=== PATIENT | female | born 1980 | race African-American/Black ===

== ENCOUNTER 2020-09-24 13:09 | Emergency (ER) | payer OTHER ==
[~2020-09-24] VITALS: Ht 165.1 cm; Wt 68.0 kg
[2020-09-24] MEDS ORDERED: CYMBALTA60 MG (13:47)
[2020-09-24] MEDS ORDERED: ULTRAM50 MG PO (19:53)
[2020-09-24] MEDS ORDERED: INTESTINEX680 M1 PO (19:53)
[2020-09-24] MEDS ORDERED: CLINDAMYCIN HC300 MG PO (19:53)
== END 2020-09-24 20:51 | disposition home or self-care (01) ==
LOC: ER 13:09
DX: K05.219 Aggressive periodontitis, localized, unspecified severity (principal); K08.89 Other specified disorders of teeth and supporting structures

== ENCOUNTER 2025-01-31 08:43 | Outpatient (CLI) | payer OTHER ==
[~2025-01-31 08:43] MED LIST: CLINDAMYCIN HC300 MG PO; CYMBALTA60 MG; INTESTINEX680 M1 PO; ULTRAM50 MG PO
[2025-01-31 10:48] LABS: PH,URINE 6.5 (5.0-8.0); URINE APPEARANCE Clear; URINE BILIRRUBIN Negative (NEGATIVE); URINE BLOOD Negative; URINE COLOR Yellow; URINE GLUCOSE Negative (NEGATIVE); URINE KETONE Negative (NEGATIVE); URINE LEUKOCYTE Trace; URINE NITRATE Negative; URINE PROTEIN Negative (NEGATIVE); URINE UROBILINOGEN 0.2 E.U./dl
[2025-01-31 10:50] LABS: URINE BACTERIA 665.6 uL (0.0-1933); URINE EPITHELIAL CELLS 2.5 uL (0.0-38.8); URINE RBC 3.8 uL (0.0-20.8); URINE WBC 8.3 uL (0.0-23.2)
[2025-01-31 10:54] LABS: BASO % 0.6 % (0.1-1.2); EOS # 0.22 (0.04-0.54); HEMOGLOBIN 11.2 g/dL (11.2-15.7); LYMPH # 1.65 (1.18-3.74); LYMPH % 22.8 % (19.3-53.1); MONO # 0.39 (0.24-0.82); MONO % 5.4 % (4.7-12.5); NEUT # 4.92 (1.56-6.13); NEUT % 67.9 % (34.0-71.1); PLATELET COUNT 184 K/uL (163-369); RED CELL DISTRIBUTION WIDTH 12.6 % (11.6-14.4)
[2025-01-31 10:58] LABS: ERYTHROCYTE SEDIMENTATION RATE 8 mm/hr (0-20)
[2025-01-31 11:43] LABS: ALBUMIN 3.9 gm/dL (3.4-5.0); BILIRUBIN TOTAL 0.48 mg/dL (0.3-1.2); CALCIUM 9.1 mg/dL (8.5-10.1); CHOL HDL RATIO 4.1 (0-5.0); CREATININE SERUM 0.63 mg/dL (0.55-1.02); GFR 102.19; GLOBULINA 2.8 G/DL (2.4-3.5); POTASSIUM 4.05 mEq/L (3.5-5.1); TOTAL PROTEIN 6.7 gm/dL (6.4-8.2); TSH 0.513 uIU/mL (0.358-3.74)
== END 2025-01-31 08:48 | disposition home or self-care (01) ==
LOC: LAB 08:43
DX: N39.0 Urinary tract infection, site not specified (principal); R39.15 Urgency of urination; R51.0 Headache with orthostatic component, not elsewhere classified; R53.1 Weakness; M79.7 Fibromyalgia; E55.9 Vitamin D deficiency, unspecified; E66.3 Overweight

== ENCOUNTER → 2025-04-02 09:02 | Outpatient (CLI) | payer OTHER ==
[2025-04-02 10:12] LABS: URINE APPEARANCE Clear; URINE BILIRRUBIN Negative (NEGATIVE); URINE BLOOD Negative; URINE COLOR Yellow; URINE GLUCOSE Negative (NEGATIVE); URINE KETONE Negative (NEGATIVE); URINE LEUKOCYTE Moderate; URINE NITRATE Negative; URINE PROTEIN Negative (NEGATIVE); URINE UROBILINOGEN 0.2 E.U./dl
[2025-04-02 10:15] LABS: BASO % 0.3 % (0.1-1.2); EOS # 0.08 (0.04-0.54); EOS % 1.4 % (0.7-7.0); LYMPH # 1.64 (1.18-3.74); LYMPH % 27.9 % (19.3-53.1); MEAN PLATELET VOLUME 10.10 fl (9.4-12.4); MONO # 0.24 (0.24-0.82); MONO % 4.1 % (4.7-12.5); NEUT # 3.89 (1.56-6.13); NEUT % 66.1 % (34.0-71.1); RED CELL DISTRIBUTION WIDTH 12.3 % (11.6-14.4)
[2025-04-02 10:16] LABS: URINE BACTERIA 28.7 uL (0.0-1933); URINE EPITHELIAL CELLS 3.6 uL (0.0-38.8); URINE RBC 2.3 uL (0.0-20.8); URINE WBC 37.9 uL (0.0-23.2)
[2025-04-02 10:17] LABS: URINE CAST 0.00 uL (0.0-1.40)
[2025-04-02 10:53] LABS: ALT/SGPT 17.0 U/L (12-78); AST/SGOT 9.0 U/L (15-37); BILIRUBIN TOTAL 0.69 mg/dL (0.3-1.2); BUN CREA RATIO 13.0 (7.0-25.0); CHOL HDL RATIO 4.1 (0-5.0); CREATININE SERUM 0.68 mg/dL (0.55-1.02); GFR 93.57; GLOBULINA 2.9 G/DL (2.4-3.5); GLUCOSE FASTING 91.0 mg/dL (65-100); HDL 44.0 mg/dl (40-60); LDL 111.0 mg/dl (0-130); OSMOLALITY SERUM 281.0 MOSM/KG (275-295); TSH 0.804 uIU/mL (0.358-3.74); VLDL 23.0 (0-39)
[2025-04-03 07:11] LABS: hav igm Negative (Negative); hep b c Negative (Negative); hep b s ag Negative (Negative)
[2025-04-03 17:08] LABS: chla t Negative (Negative); neiss Negative (Negative)
== END | disposition home or self-care (01) ==
LOC: LAB 09:02
PROVIDERS: ATTEND Obstetrics & Gynecology
DX: E78.5 Hyperlipidemia, unspecified (principal); E03.9 Hypothyroidism, unspecified; E11.8 Type 2 diabetes mellitus with unspecified complications; N93.0 Postcoital and contact bleeding; E55.9 Vitamin D deficiency, unspecified; Z11.3 Encounter for screening for infections with a predominantly sexual mode of transmission; A56.09 Other chlamydial infection of lower genitourinary tract; A54.03 Gonococcal cervicitis, unspecified; K75.9 Inflammatory liver disease, unspecified; A53.9 Syphilis, unspecified; B20 Human immunodeficiency virus [HIV] disease; A64 Unspecified sexually transmitted disease

== ENCOUNTER 2025-07-31 13:08 | Outpatient (CLI) | payer OTHER | END 2025-07-31 13:10 | disposition home or self-care (01) | LOC: TOM 13:08 | PROVIDERS: ATTEND General Practice | DX: R51.9 Headache, unspecified (principal); R42 Dizziness and giddiness ==